=== PATIENT | female | born 1980 | race Two or more races ===

== ENCOUNTER 2019-01-05 07:52 | Emergency (ER) | payer BC, MEDICAID ==
[~2019-01-05] VITALS: Ht 162.6 cm; Wt 97.5 kg
[2019-01-05] MEDS ORDERED: ALBUTEROL SULF 2.5 MG/0.5ML(0.5%) NEB SOLN NEB ONE ×3 (08:15→11:00)
[2019-01-05] MEDS ORDERED: methylPREDNISolone SOD SUCC 125 MG/2 ML VL IV ONE (08:15)
[2019-01-05] MEDS ORDERED: IPRATROPIUM BROM 0.5 MG/2.5ML INH SOL NEB ONE (08:15)
[2019-01-05] MEDS ORDERED: cefTRIAXone 1GM/50ML D5W 50 ML IV ONE (08:30)
[2019-01-05 08:35] LABS: Basophils # (auto) 0.1 uL; Eosinophils # (auto) 0.8 uL; Eosinophils % (auto) 7.5 % (0.0-7.0); Mean Corpuscular Hemoglobin 22.2 pg (28.0-32.0)
[2019-01-05 08:36] LABS: Basophils % (auto) 1.1 % (0.0-2.0); Hematocrit 36.5 % (36.0-46.0); Hemoglobin 11.4 g/dL (12.2-16.2); Lymphocytes # (auto) 2.9 uL; Lymphocytes % (auto) 28.8 % (10.0-50.0); Mean Corpuscular Hgb Conc. 31.2 g/dL (32.0-36.0); Mean Corpuscular Volume 71.1 fL (80.0-100.0); Monocytes # (auto) 0.8 uL; Monocytes % (auto) 7.5 % (0.0-12.0); Neutrophils # (auto) 5.6 uL; Neutrophils % (auto) 55.1 % (37.0-80.0); Nucleated Red Blood Cells % 0.1 %; Platelet Count (auto) 486 10^3/uL (140-450); Red Blood Cells 5.13 10^6/uL (4.0-5.20); White Blood Cell 10.2 10^3/uL (4.4-10.8)
[2019-01-05 08:42] LABS: Red Cell Distribution Width 21.7 % (11.8-14.3)
[2019-01-05 08:54] LABS: Albumin 3.5 g/dL (3.4-5.0); BUN/Creatinine Ratio 14.3; Calcium 8.9 mg/dL (8.5-10.1); Potassium 3.9 mmol/L (3.5-5.1)
[2019-01-05 08:57] LABS: Bilirubin, Total 0.2 mg/dL (0.2-1.0); Total Protein 8.4 g/dL (6.4-8.2)
[2019-01-05 09:02] VITALS: BP 123/75
== END 2019-01-05 11:41 | disposition home or self-care (01) ==
LOC: ER 07:52
DX: J45.901 Unspecified asthma with (acute) exacerbation (principal)
CPT/HCPCS: 36415; 71045; 80053; 85025; 94640; 94644; 96365; 96375; 99285; J0696; J2930; J7611; J7644